=== PATIENT | female | born 1935 | race Caucasian/White ===

== ENCOUNTER 2018-07-16 22:01 | Emergency (ER) | payer OTHER ==
--- NOTE | 2018-07-16 22:12 | EDPHY ---
H & P Stated Complaint: R sided paresethesias and weakness Time Seen by Provider: 07/16/18 22:07 HPI/ROS: HPI The patient presents with right-sided paresthesias, weakness. The patient is brought in by ambulance from her home. While she was seated on the couch watching television a few minutes after 9:00 p.m., she noticed some tingling in the corner of her right mouth. This progressed and then she noticed tingling throughout her right arm. She called out to her though he did not hear her. She tried to stand from the couch and could not because her right leg felt weak. She had to lean on a love seat next to her in order to prop herself up. She talked with some family members and then ultimately called 911. By the time she arrived here the weakness in her leg had improved and she had no further paresthesias. She believes his symptoms are present for about 1 hr. She did not have any changes to her speech, headache, vomiting, difficulty swallowing. She has no prior history of similar REVIEW OF SYSTEMS 10 systems were reviewed and negative with the exception of the elements mentioned in the history of present illness. PMHx: Hypertension, CAD status post stent placement on Plavix, followed by [facility] Hx: Housed with her family PHYSICAL General Appearance: Alert, no distress Eyes: Pupils equal and round no pallor or injection ENT, Mouth: Mucous membranes moist Respiratory: There are no retractions, lungs are clear to auscultation Cardiovascular: Regular rate and rhythm Gastrointestinal: Abdomen is soft and non-tender, no masses, bowel sounds normal Neurological: A&O, cranial nerves 2-12 intact, 5/5 strength in upper and lower extremities which is symmetric, normal finger to nose and heel to levin testing, sensation intact to light touch throughout upper and lower extremities, no extinction is present Skin: Warm and dry, no rashes Musculoskeletal: Neck is supple non tender Extremities: symmetrical, full range of motion Psychiatric: Patient is oriented X 3, there is no agitation The Source: Patient Exam Limitations: No limitations - Personal History Tetanus Vaccine Date: UNSURE OF DATE Constitutional: Initial Vital Signs Temperature (C) 36.8 C 07/16/18 22:05 Heart Rate 87 07/16/18 22:05 Respiratory Rate 18 07/16/18 22:05 Blood Pressure 222/97 H 07/16/18 22:05 O2 Sat (%) 92 07/16/18 22:05 O2 Delivery Mode Nasal Cannula O2 (L/minute) 2 Allergies/Adverse Reactions: No Known Allergies Allergy (Unverified 12/12/10 21:41) Home Medications: Medication Instructions Recorded Plavix (*) 07/16/18 amLODIPine BESYLATE 07/16/18 Medical Decision Making - Diagnostics EKG Interpretation: EKG: Complete interpretation has been separately recorded in the [employer] archive. Summary impression: Normal sinus rhythm Imaging Results: Imaging Impressions Chest X-Ray 07/16/18 22:07 Impression: Bibasilar atelectasis. Otherwise stable portable chest. Head CT 07/16/18 22:07 Impression: Negative noncontrast CT of the brain. Results called to Dr. Radha Camacho at 10:30 PM at the time of the interpretation. Imaging: Discussed imaging studies w/ call center agent Radiologist Differential Diagnosis: 82-year-old female with hypertension, CAD, hyperlipidemia presents brought in by ambulance for transient right-sided deficits, now resolved. She does report paresthesias of her right face, right arm paresthesias and right lower extremity weakness. This is most concerning for TIA especially in the setting of uncontrolled hypertension. Other possibilities include CVA, electrolyte disturbance. In the emergency department, EKG was obtained and shows a normal sinus rhythm. Patient's initial blood pressure quite elevated at 220 systolic, however repeat blood pressure is 180/[address] scan of head was obtained showing no acute injury, no bleed or sign of large vessel ischemia. Patient's symptoms did not return while she was in the emergency department. Basic labs were also normal. I consulted with the [place] doctor line. I spoke with the on-call doctor who will speak with hospitalist for possible admission. ABCD2 score calculated at 6. Because of this she is at high risk for CVA and should be admitted. The accepting doctor at [facility] is Dr. Tiwari. I have explained the treatment plan and the transfer to the patient and her family. [place] will arrange for transport. - Data Points Laboratory Results: Laboratory Results 07/16/18 22:17 07/16/18 22:17 07/16/18 07/16/18 07/16/18 22:17 22: 22: WBC 6.39 10^3/uL 10^3/uL (3.80-9.50) RBC 4.23 10^6/uL 10^6/uL (4.18-5.33) Hgb 12.0 g/dL L g/dL (12.6-16.3) Hct 39.2 % % (38.0-47.0) MCV 92.7 fL fL (81.5-99.8) MCH 28.4 pg pg (27.9-34.1) MCHC 30.6 g/dL L g/dL (32.4-36.7) RDW 14.1 % % (11.5-15.2) Plt Count 348 10^3/uL 10^3/uL (150-400) MPV 9.8 fL fL (8.7-11.7) Neut % (Auto) 59.3 % % (39.3-74.2) Lymph % (Auto) 28.3 % % (15.0-45.0) Dawson % (Auto) 9.7 % % (4.5-13.0) Eos % (Auto) 2.2 % % (0.6-7.6) Baso % (Auto) 0.3 % % (0.3-1.7) Nucleat RBC Rel Count 0.0 % % (0.0-0.2) Absolute Neuts (auto) 3.79 10^3/uL 10^3/uL (1.70-6.50) Absolute Lymphs (auto) 1.81 10^3/uL 10^3/uL (1.00-3.00) Absolute Monos (auto) 0.62 10^3/uL 10^3/uL (0.30-0.80) Absolute Eos (auto) 0.14 10^3/uL 10^3/uL (0.03-0.40) Absolute Basos (auto) 0.02 10^3/uL 10^3/uL (0.02-0.10) Absolute Nucleated RBC 0.00 10^3/uL 10^3/uL (0-0.01) Immature Gran % 0.2 % % (0.0-1.1) Immature Gran # 0.01 10^3/uL 10^3/uL (0.00-0.10) PT 12.9 SEC SEC (12.0-15.0) INR 0.95 (0.83-1.16) APTT 24.6 SEC SEC (23.0-38.0) Sodium 135 mEq/L mEq/L (135-145) Potassium 4.0 mEq/L mEq/L (3.5-5.2) Chloride 101 mEq/L mEq/L (97-110) Carbon Dioxide 26 mEq/l mEq/l (22-31) Anion Gap 8 mEq/L mEq/L (6-14) BUN 18 mg/dL mg/dL (7-23) Creatinine 1.0 mg/dL mg/dL (0.6-1.0) Estimated GFR 53 Glucose 100 mg/dL mg/dL (70-100) Calcium 9.6 mg/dL mg/dL (8.5-10.4) POC Troponin I 07/16/18 22:15 WBC RBC Hgb Hct MCV MCH MCHC RDW Plt Count MPV Neut % (Auto) Lymph % (Auto) Dawson % (Auto) Eos % (Auto) Baso % (Auto) Nucleat RBC Rel Count Absolute Neuts (auto) Absolute Lymphs (auto) Absolute Monos (auto) Absolute Eos (auto) Absolute Basos (auto) Absolute Nucleated RBC Immature Gran % Immature Gran # PT INR APTT Sodium Potassium Chloride Carbon Dioxide Anion Gap BUN Creatinine Estimated GFR Glucose Calcium POC Troponin I 0.00 ng/mL ng/mL (0.00-0.08) Medications Given: Discontinued Medications Aspirin (Aspirin) 325 mg PO EDNOW ONE Stop: 07/16/18 22:57 Last Admin: 07/16/18 23:02 Dose: 325 mg Point of Care Test Results: Chemistry 07/16/18 22:15 POC Troponin I 0.00 ng/mL ng/mL (0.00-0.08) Departure - Departure Disposition: Acute Care Hospital Not [facility] Clinical Impression: TIA (transient ischemic attack), Paresthesia, Transient right leg weakness, HTN (hypertension), CAD (coronary artery disease) Condition: Fair Referrals: Patient,NotPresent [Unknown] - As per Instructions
[2018-07-16 22:22] LABS: PLATELET COUNT 348 10^3/uL (150-400)
[2018-07-16 22:30] LABS: INR 0.95 (0.83-1.16); PROTIME(PATIENT) 12.9 SEC (12.0-15.0)
[2018-07-16] MEDS ORDERED: ASPIRIN 325 MG TAB PO ONE (22:56)
--- NOTE | 2018-07-16 23:32 | CPEKG ---
Test Reason : OPEN Blood Pressure : / mmHG Vent. Rate : 080 BPM Atrial Rate : 080 BPM P-R Int : 167 ms QRS Dur : 087 ms QT Int : 391 ms P-R-T Axes : 037 025 074 degrees QTc Int : 451 ms Sinus rhythm Abnormal R-wave progression, early transition Probable LVH with secondary repol abnrm Confirmed by Georgina Camacho ([id number]) on 07/16/2018 11:31:47 PM Referred By: Georgina Camacho Confirmed By:Georgina Camacho
[2018-07-16 23:42] VITALS: BP 130/84
== END 2018-07-16 23:47 | disposition short-term general hospital (02) ==
LOC: EDUNIT#
DX: G45.9 Transient cerebral ischemic attack, unspecified (principal); R20.2 Paresthesia of skin; I10 Essential (primary) hypertension; I25.10 Atherosclerotic heart disease of native coronary artery without angina pectoris
CPT/HCPCS: 84484-ER